=== PATIENT | female | born 1960 | race American Indian/Alaskan Native ===

== ENCOUNTER 2018-02-18 16:52 | Inpatient (IN) | payer MEDICAID ==
[2018-02-18 20:07] LABS: BASO % 0.3 % (0.0-2.0); HEMOGLOBIN 11.4 g/dL (11.0-16.0); LYMPH # 0.8 K/uL (1.0-4.3); MEAN CELL VOLUME 86.3 fL (81.0-99.0); MEAN CORPUSCULAR HEMOGLOBIN 27.7 pg (27.0-31.0); MEAN CORPUSCULAR HGB CONC 32.1 g/dL (33.0-37.0); MEAN PLATELET VOLUME 8.4 fL (7.2-11.7); MONO # 0.3 K/uL (0.0-0.8); MONO % 4.5 % (0.0-10.0); NEUT # 6.2 K/uL (1.8-7.0); NEUT % 84.2 % (50.0-75.0); RBC 4.13 Mil/uL (3.80-5.20); RED CELL DISTRIBUTION WIDTH 15.4 % (11.5-14.5); WHITE BLOOD COUNT 7.4 K/uL (4.8-10.8)
[2018-02-18 20:22] LABS: ALB/GLOB RATIO 1.2 (1.0-2.1); ALBUMIN 4.5 g/dL (3.5-5.0); ALT/SGPT 20 U/L (9-52); AST/SGOT 27 U/L (14-36); BLOOD UREA NITROGEN 23 mg/dL (7-17); CALCIUM 9.2 mg/dl (8.6-10.4); GFR NON-AFRICAN AMERICAN 51
[2018-02-18] MEDS ORDERED: Potassium Chloride 20 mEq/15 ml LIQ UD PO STA (20:45)
[2018-02-18 20:52] LABS: T3 1.05 nmol/L (1.49-2.60)
[2018-02-18] MEDS ORDERED: Potassium Chloride 20 mEq ER Tab PO STA (20:57)
[2018-02-18] MEDS ORDERED: Potassium Chloride 20 mEq ER Tab PO ONE (21:06)
[2018-02-18] MEDS ORDERED: Potassium Chloride 20 mEq/15 ml LIQ UD ONE (21:06)
--- NOTE | 2018-02-18 21:34 | C.PDOC ---
History Of Present Illness 57 y/o female was sent in by insecticide supervisor Dr. Medina for pacemaker placement tomorrow. Patient states she had multiple episodes of syncope over the last several weeks. A loop recorder was placed which shows intermittent complete hear t block. Patient is currently is asymptomatic and has no complaints. Chief Complaint (Nursing): Medical Clearance History Per: Patient History/Exam Limitations: no limitations Onset/Duration Of Symptoms: Days Current Symptoms Are (Timing): Still Present Past Medical History Reviewed: Historical Data, Nursing Documentation, Vital Signs Vital Signs: Last Vital Signs Temp 97.9 F 02/18/18 19:30 Pulse 82 02/18/18 21:29 Resp 20 02/18/18 19:30 BP 95/58 L 02/18/18 21:29 Pulse Ox 97 02/18/18 21:29 Family History: States: No Known Family Hx - Social History Hx Alcohol Use: Yes Hx Substance Use: Yes - Immunization History Hx Tetanus Toxoid Vaccination: No Hx Influenza Vaccination: Yes Hx Pneumococcal Vaccination: Yes Review Of Systems Except As Marked, All Systems Reviewed And Found Negative. Constitutional: Negative for: Fever, Chills Cardiovascular: Negative for: Chest Pain Respiratory: Negative for: Shortness of Breath Gastrointestinal: Negative for: Abdominal Pain Neurological: Positive for: Other (Syncope). Negative for: Dizziness Physical Exam - Physical Exam Appears: Non-toxic, No Acute Distress Skin: Warm, Dry Head: Atraumatic, Normacephalic Eye(s): bilateral: Normal Inspection Oral Mucosa: Moist Neck: Supple Chest: Symmetrical Cardiovascular: Rhythm Regular, No Murmur Respiratory: Normal Breath Sounds, No Rales, No Rhonchi, No Wheezing Gastrointestinal/Abdominal: Soft, No Tenderness Extremity: Bilateral: Atraumatic, Normal Color And Temperature, Normal ROM Neurological/Psych: Oriented x3, Normal Speech ED Course And Treatment - Laboratory Results Result Diagrams: 02/18/18 20:01 02/18/18 20:01 Lab Results: Troponin I < 0.0120 ng/mL (0.00-0.120) 02/18/18 20:01 Total Bilirubin 0.4 mg/dL (0.2-1.3) 02/18/18 20:01 AST 27 U/L (14-36) 02/18/18 20:01 ALT 20 U/L (9-52) 02/18/18 20:01 Alkaline Phosphatase 78 U/L (38-126) 02/18/18 20:01 Total Protein 8.1 g/dL (6.3-8.3) 02/18/18 20:01 Albumin 4.5 g/dL (3.5-5.0) 02/18/18 20:01 Globulin 3.6 gm/dL (2.2-3.9) 02/18/18 20:01 Albumin/Globulin Ratio 1.2 (1.0-2.1) 02/18/18 20:01 ECG: Interpreted By Me, Viewed By Me ECG Rhythm: Sinus Rhythm Interpretation Of ECG: Normal axis. Normal intervals. Rate From EC O2 Sat by Pulse Oximetry: 97 (RA) Pulse Ox Interpretation: Normal Progress - Re-Evaluation Re-evaluation Note: Spoke to Dr. Prasad. Medical Decision Making Medical Decision Making: Plan: --EKG --Labs --Chest XR --Crestor 5 mg PO --K-Dur PO --Lovenox 40 mg SC --Potassium Chloride PO Disposition - Disposition Disposition Time: 20:10 Condition: STABLE - Clinical Impression Clinical Impression: Intermittent complete heart block - Scribe Statement The provider has reviewed the documentation as recorded by the Dannyibemily Rodriguez Provider Attestation: All medical record entries made by the Scribe were at my direction and persona lly dictated by me. I have reviewed the chart and agree that the record accurately reflects my personal performance of the history, physical exam, medical decision making, and the department course for this patient. I have also personally directed, reviewed, and agree with the discharge instructions and disposition.
[2018-02-19 03:49] LABS: CK-MB 0.47 ng/mL (0.0-3.38)
--- NOTE | 2018-02-19 08:21 | RAD ---
Chest x-ray single frontal view HISTORY: Chest pain. Comparison: None available. Findings: Mild venous congestion. Small nodular density at the right lung apex. Heart size within normal limits. Probable external device projects over the left heart border. Clinical correlation. Atherosclerotic calcification plaque within the aorta. Tortuous aorta. Impression: Mild venous congestion. Small nodular density at the right lung apex. Heart size within normal limits. Probable external device projects over the left heart border. Clinical correlation. Atherosclerotic calcification plaque within the aorta. Tortuous aorta.
[2018-02-19] MEDS: Enoxaparin 40 mg Syringe SC SCH (13:34)
--- NOTE | 2018-02-19 15:19 | CP.PCM.CON ---
History of Present Illness - History of Present Illness History of Present Illness: Patient with history of CAD, SLE. multiple episodes of syncope and last episode resulting in left wrist fracture. Loop recorder was placed due to these episodes. Loop recorder interrogation showed multiple episodes of intermittent CHB and 2:1 A-V block. Patient was advised for PPM and she agreed and came to hospital last night. denies any new episodes. Telemetry showing no new blocks or bradycardia. No chest pain or SOB. Past Patient History - Past Medical History & Family History Past Medical History?: Yes - Past Social History Smoking Status: Never Smoked - CARDIAC Hx Cardiac Disorders: Yes Hx Cardia Arrhythmia: Yes Other/Comment: stent - PULMONARY Hx Respiratory Disorders: No - NEUROLOGICAL Hx Neurological Disorder: Yes Hx Syncope: Yes - HEENT Hx HEENT Problems: No - RENAL Hx Chronic Kidney Disease: No - ENDOCRINE/METABOLIC Hx Endocrine Disorders: Yes Hx Systemic Lupus Erythematosus: Yes - HEMATOLOGICAL/ONCOLOGICAL Hx Blood Disorders: No - INTEGUMENTARY Hx Dermatological Problems: No - MUSCULOSKELETAL/RHEUMATOLOGICAL Hx Musculoskeletal Disorders: Yes Hx Falls: Yes Hx Fractures: Yes (left hand) Hx Rheumatoid Arthritis: Yes Other/Comment: broken finger - GASTROINTESTINAL Hx Gastrointestinal Disorders: No - GENITOURINARY/GYNECOLOGICAL Hx Genitourinary Disorders: No - PSYCHIATRIC Hx Psychophysiologic Disorder: No Hx Substance Use: No - SURGICAL HISTORY Hx Surgeries: Yes Other/Comment: stent - ANESTHESIA Hx Anesthesia: Yes Hx Anesthesia Reactions: No Meds Allergies/Adverse Reactions: Allergies Allergy/AdvReac Type Severity Reaction Status Date / Time No Known Allergies Allergy Verified 02/18/18 17:34 - Medications Medications: Current Medications Enoxaparin Sodium (Lovenox) 40 mg SC DAILY [facility] Last Admin: 02/19/18 13:34 Dose: Not Given Pneumococcal Polyvalent Vaccine (Pneumovax 23 Vaccine) 0.5 ml IM .ONCE ONE Stop: 02/21/18 10:01 Rosuvastatin Calcium (Crestor) 5 mg PO HS [facility] Last Admin: 02/18/18 21:25 Dose: 5 mg Physical Exam - Head Exam Head Exam: NORMOCEPHALIC - Neck Exam Neck exam: Positive for: Normal Inspection - Respiratory Exam Respiratory Exam: NORMAL BREATHING PATTERN - Cardiovascular Exam Cardiovascular Exam: REGULAR RHYTHM - Extremities Exam Extremities exam: Positive for: normal inspection - Neurological Exam Neurological exam: Alert, Oriented x3 Results - Vital Signs Recent Vital Signs: Last Vital Signs Temp 98.3 F 02/19/18 10:29 Pulse 76 02/19/18 10:29 Resp 20 02/19/18 10:29 BP 125/82 02/19/18 10:29 Pulse Ox 98 02/19/18 10:29 - Labs Result Diagrams: 02/18/18 20:01 02/19/18 14:07 Labs: Laboratory Results - last 24 hr 02/18/18 02/18/18 02/19/18 20:01 20:01 03:17 WBC 7.4 RBC 4.13 Hgb 11.4 Hct 35.7 MCV 86.3 MCH 27.7 MCHC 32.1 L RDW 15.4 H Plt Count 276 MPV 8.4 Neut % (Auto) 84.2 H Lymph % (Auto) 11.0 L Rankin % (Auto) 4.5 Eos % (Auto) 0.0 Baso % (Auto) 0.3 Neut # (Auto) 6.2 Lymph # (Auto) 0.8 L Rankin # (Auto) 0.3 Eos # (Auto) 0.0 Baso # (Auto) 0.0 PT INR APTT Sodium 135 Potassium 3.1 L Chloride 96 L Carbon Dioxide 27 Anion Gap 14 BUN 23 H Creatinine 1.1 Est GFR ( Amer) > 60 Est GFR (Non-Af Amer) 51 Random Glucose 111 H Calcium 9.2 Total Bilirubin 0.4 AST 27 ALT 20 Alkaline Phosphatase 78 Total Creatine Kinase 39 CK-MB (Mass) 0.47 Troponin I < 0.0120 < 0.0120 Total Protein 8.1 Albumin 4.5 Globulin 3.6 Albumin/Globulin Ratio 1.2 Total T3 1.05 L TSH 3rd Generation 0.62 02/19/18 02/19/18 14:07 14:07 WBC RBC Hgb Hct MCV MCH MCHC RDW Plt Count MPV Neut % (Auto) Lymph % (Auto) Rankin % (Auto) Eos % (Auto) Baso % (Auto) Neut # (Auto) Lymph # (Auto) Rankin # (Auto) Eos # (Auto) Baso # (Auto) PT 11.0 INR 1.0 APTT 30 Sodium Potassium 3.4 L Chloride Carbon Dioxide Anion Gap BUN Creatinine Est GFR ( Amer) Est GFR (Non-Af Amer) Random Glucose Calcium Total Bilirubin AST ALT Alkaline Phosphatase Total Creatine Kinase CK-MB (Mass) Troponin I Total Protein Albumin Globulin Albumin/Globulin Ratio Total T3 TSH 3rd Generation Assessment & Plan (1) CAD (coronary artery disease) Assessment and Plan: Stable, continue current cardiac care. Status: Acute (2) Intermittent complete heart block Assessment and Plan: Syncope most likely secondary to long episodes of CHB. Plans foe PPM. Keep NPO. EP consult. Status: Acute
[2018-02-19] MEDS ORDERED: Thrombin Topical 5,000 Int Units Spray Kit TOP ONE (17:00)
[2018-02-19] MEDS ORDERED: ceFAZolin 1 gm FROZEN Premix 1 GM/50 ML ML IVPB ONE (17:02)
[2018-02-19] MEDS ORDERED: Lidocaine Hydrochloride 10 ML INJ ONE (17:47)
[2018-02-19] MEDS ORDERED: Midazolam 2 MG/2 ML VIAL ONE ×2 (18:07→18:08)
[2018-02-19] MEDS ORDERED: Lidocaine 1% 20 MG/2 ML PF AMP ONE ×2 (18:08→18:10)
--- NOTE | 2018-02-19 19:24 | PCM.OP ---
Operative Report - Operative Report Date of Surgery/Procedure: 02/19/18 Time of Surgery/Procedure: 19:19 Surgeon: malena Anesthesia/Sedation: MAC Pre-Operative Diagnosis: syncope, complete heart block Post-Operative Diagnosis: syncope, complete heart block Indication for Surgery: syncope, complete heart block Operative Findings: syncope, complete heart block Procedure/Operation Description: She was brought to the OR after an informed consent and in a post absorptive state She was administred prophylactic antibiotics The left pectoral region was prepped and cleansed in the usual fashion Under local anesthesia a 3 cm incision was made over the left upper pectoral region the left subclavian vein was cannulated twice and via two six austrian sheaths a 45 cm and a 52 cm leads were placed in the right atrium and the right ventricle and secured Next the leads were secured to the pectoral muscle; the sense and pace parameters were normal The pacemaker generator was introduced connected to the leads and the wound closed in layers Estimated Blood Loss: 5 cc Complications: None Discharge & Condition: antibiotics x 3 doses chest xray
[2018-02-19] MEDS ORDERED: Oxycodone/Acetaminophen 5/325 mg Tab PO PRN (19:29)
--- NOTE | 2018-02-19 20:54 | CP.PCM.HP ---
Past Patient History - Past Medical History & Family History Past Medical History?: Yes - Past Social History Smoking Status: Never Smoked - CARDIAC Hx Cardiac Disorders: Yes Hx Cardia Arrhythmia: Yes Other/Comment: stent - PULMONARY Hx Respiratory Disorders: No - NEUROLOGICAL Hx Neurological Disorder: Yes Hx Syncope: Yes - HEENT Hx HEENT Problems: No - RENAL Hx Chronic Kidney Disease: No - ENDOCRINE/METABOLIC Hx Endocrine Disorders: Yes Hx Systemic Lupus Erythematosus: Yes - HEMATOLOGICAL/ONCOLOGICAL Hx Blood Disorders: No - INTEGUMENTARY Hx Dermatological Problems: No - MUSCULOSKELETAL/RHEUMATOLOGICAL Hx Musculoskeletal Disorders: Yes Hx Falls: Yes Hx Fractures: Yes (left hand) Hx Rheumatoid Arthritis: Yes Other/Comment: broken finger - GASTROINTESTINAL Hx Gastrointestinal Disorders: No - GENITOURINARY/GYNECOLOGICAL Hx Genitourinary Disorders: No - PSYCHIATRIC Hx Psychophysiologic Disorder: No Hx Substance Use: No - SURGICAL HISTORY Hx Surgeries: Yes Other/Comment: stent - ANESTHESIA Hx Anesthesia: Yes Hx Anesthesia Reactions: No Meds Allergies/Adverse Reactions: Allergies Allergy/AdvReac Type Severity Reaction Status Date / Time No Known Allergies Allergy Verified 02/18/18 17:34 Results - Vital Signs Recent Vital Signs: Last Vital Signs Temp 98.4 F 02/19/18 15:29 Pulse 92 H 02/19/18 15:29 Resp 18 02/19/18 15:29 BP 114/78 02/19/18 15:29 Pulse Ox 96 02/19/18 15:29 - Labs Result Diagrams: 02/18/18 20:01 02/19/18 14:07 Labs: Laboratory Results - last 24 hr 02/19/18 02/19/18 02/19/18 03:17 14:07 14:07 PT 11.0 INR 1.0 APTT 30 Potassium 3.4 L Total Creatine Kinase 39 CK-MB (Mass) 0.47 Troponin I < 0.0120
[2018-02-20] MEDS: ceFAZolin 1 GM in Sodium Chloride 0.9% 100 ML IVPB SCH ×3 (02:00→16:14)
[2018-02-20] MEDS: Oxycodone/Acetaminophen 5/325 mg Tab PO PRN ×4 (02:50→21:34)
--- NOTE | 2018-02-20 04:10 | HP ---
CHIEF COMPLAINT: Abnormal loop recorder. HISTORY OF PRESENT ILLNESS: This is a 57-year-old female with history of hypertension, coronary artery disease, systemic lupus erythematosus, and she in the past had multiple episodes of syncope and her last syncope ended up with a fall with left wrist fracture, and a loop recorder was placed due to these episodes and this loop recorder showed 2 to 1 heart block and intermittent complete heart block in between, and the patient was advised a permanent pacemaker replacement. She came to emergency room, and she was hospitalized. However, the patient was monitored initially on telemetry, that did not show any arrhythmia since yesterday. The patient denies any chest pain, nausea, vomiting. She gets occasional dizziness. No cough. No sore throat. According to the patient, she does not do any heavy physical activity. She denies any abdominal pain, nausea, vomiting, or diarrhea. She denies any chest pain or palpitations. She denies any history of fever, chills. She denies any tongue bite, incontinence of urine. She denies any polyuria, polydipsia, or polyphagia. She denies any hematuria or pyuria. PAST MEDICAL HISTORY: Hypertension, coronary artery disease, systemic lupus erythematosus. SOCIAL HISTORY: Nonsmoker, non-ETOH user. MEDICATIONS: Current medications at home, she is on Hydrodiuril, Zoloft, multivitamin, Plaquenil, aspirin, Flonase, Lexapro, Protonix, vitamin D, Lipitor. PHYSICAL EXAMINATION: GENERAL: A middle-aged female, in no distress. VITAL SIGNS: Blood pressure 114/78, pulse 92, respiratory rate 18, and temperature 98.4. SKIN: Warm. Good turgor. No bruises. HEENT: Atraumatic and normocephalic. Negative pallor. Negative jaundice. Extraocular movements are intact. NECK: Supple. No JVD. No lymph nodes. CHEST WALL: Bilateral symmetrical expansion. LUNGS: Clear. CARDIOVASCULAR SYSTEM: PMI not localized. S1 and S2. Regular. No heave. No thrill. ABDOMEN: Soft, nontender. Bowel sounds are positive. RECTAL AND PELVIC: Deferred. EXTREMITIES: No clubbing, cyanosis, or edema. CENTRAL NERVOUS SYSTEM: Awake, alert, oriented x3. Cranial nerves II through XII are normal. Power 5/5 x4. Plantars are downgoing. ASSESSMENT: 1. Complete heart block intermittent with 2 to 1 atrioventricular block. 2. Hypertension. 3. Lupus. PLAN: Admit. Detailed orders are written, and the patient is here for permanent pacemaker replacement. Pal Prasad MD
[2018-02-20 06:31] LABS: BASO % 0.4 % (0.0-2.0); EOS % 0.1 % (0.0-4.0); HEMOGLOBIN 11.1 g/dL (11.0-16.0); LYMPH # 1.7 K/uL (1.0-4.3); LYMPH % 24.1 % (20.0-40.0); MEAN CELL VOLUME 86.5 fL (81.0-99.0); MEAN CORPUSCULAR HEMOGLOBIN 28.2 pg (27.0-31.0); MEAN CORPUSCULAR HGB CONC 32.7 g/dL (33.0-37.0); MEAN PLATELET VOLUME 8.6 fL (7.2-11.7); MONO # 0.7 K/uL (0.0-0.8); MONO % 9.7 % (0.0-10.0); NEUT # 4.6 K/uL (1.8-7.0); NEUT % 65.7 % (50.0-75.0); NRBC % 0.1 % (0.0-2.0); RBC 3.95 Mil/uL (3.80-5.20)
[2018-02-20 06:57] LABS: ALB/GLOB RATIO 1.2 (1.0-2.1); ALBUMIN 3.9 g/dL (3.5-5.0); ALT/SGPT 13 U/L (9-52); AST/SGOT 22 U/L (14-36); BLOOD UREA NITROGEN 22 mg/dL (7-17); CALCIUM 8.5 mg/dl (8.6-10.4); GFR NON-AFRICAN AMERICAN 57
[2018-02-20] MEDS: Potassium Chloride 20 mEq ER Tab PO SCH (08:49)
[2018-02-20] MEDS: Fluticasone Nasal 50 mcg/Spray NAS SCH (09:16)
[2018-02-20] MEDS: Multiple Vitamins Tab PO SCH (09:17)
[2018-02-20] MEDS: Enoxaparin 40 mg Syringe SC SCH (09:17)
[2018-02-20] MEDS ORDERED: Home Med 1 UNIT (Atorvastatin [Lipitor] 1 TAB) PO SCH (10:00)
--- NOTE | 2018-02-20 11:36 | RAD ---
Date of service: 02/19/2018 HISTORY: POST PPM INSERTION COMPARISON: 02/18/2018. FINDINGS: LUNGS: The lungs are well inflated and clear. PLEURA: No pleural effusions or pneumothorax. CARDIOVASCULAR: The heart is normal in size. There is interval placement of left-sided dual lead transvenous permanent pacing device. There is stable appearance of a battery devise overlying the left lower lobe. Atherosclerotic aortic arch calcifications are present. OSSEOUS STRUCTURES: Within normal limits for the patient's age. VISUALIZED UPPER ABDOMEN: Normal. OTHER FINDINGS: None. IMPRESSION: Interval placement of left-sided dual lead permanent pacing device. No acute findings.
--- NOTE | 2018-02-20 12:18 | CP.PCM.PN ---
Subjective - Date & Time of Evaluation Date of Evaluation: 02/20/18 Time of Evaluation: 12:15 - Subjective Subjective: Laying in bed. No chest pain except at the site of PPM. No SOB. Objective - Vital Signs/Intake and Output Vital Signs (last 24 hours): Temp Pulse Resp BP Pulse Ox 98.4 F 79 12 126/89 100 02/20/18 08:00 02/20/18 11:03 02/20/18 11:03 02/20/18 11:03 02/20/18 10:00 Intake and Output: 02/20/18 02/20/18 06:59 18:59 Intake Total 1060 0 Output Total 300 0 Balance 760 0 - Medications Medications: Current Medications Aspirin (Ecotrin) 81 mg PO DAILY [facility] Last Admin: 02/20/18 10:23 Dose: 81 mg Enoxaparin Sodium (Lovenox) 40 mg SC DAILY [facility] Last Admin: 02/20/18 09:17 Dose: 40 mg Escitalopram Oxalate (Lexapro) 10 mg PO DAILY [facility] Last Admin: 02/20/18 09:17 Dose: 10 mg Fluticasone Propionate (Flonase) 1 spr SHANNON DAILY [facility] Last Admin: 02/20/18 09:16 Dose: 1 spr Hydrochlorothiazide (Hydrodiuril) 25 mg PO DAILY [facility] Last Admin: 02/20/18 10:24 Dose: 25 mg Hydroxychloroquine Sulfate (Plaquenil) 200 mg PO DAILY [facility]; Protocol Last Admin: 02/20/18 10:24 Dose: 200 mg Bacitracin 50,000 unit/ Sodium (Chloride) 1,000 mls @ 0 mls/hr IR .Q0M [facility] Cefazolin Sodium 1 gm/ Sodium (Chloride) 100 mls @ 100 mls/hr IVPB Q8H [facility]; Protocol Last Admin: 02/20/18 08:44 Dose: 100 mls/hr Multivitamins (Hexavitamin) 1 tab PO DAILY [facility] Last Admin: 02/20/18 09:17 Dose: 1 tab Oxycodone/Acetaminophen (Percocet 5/325 Mg Tab) 2 tab PO Q4H PRN PRN Reason: Pain, moderate (4-7) Stop: 02/23/18 02:42 Last Admin: 02/20/18 08:50 Dose: 2 tab Pneumococcal Polyvalent Vaccine (Pneumovax 23 Vaccine) 0.5 ml IM .ONCE ONE Stop: 02/21/18 10:01 Potassium Chloride (K-Dur 20 Meq Er Tab) 40 meq PO DAILY [facility] Last Admin: 02/20/18 08:49 Dose: 40 meq Rosuvastatin Calcium (Crestor) 5 mg PO HS [facility] Last Admin: 02/19/18 21:00 Dose: 5 mg Sertraline HCl (Zoloft) 25 mg PO DAILY [facility] Last Admin: 02/20/18 11:15 Dose: 25 mg - Labs Labs: 02/20/18 06:21 02/20/18 06:21 PT 11.0 SECONDS (9.7-12.2) 02/19/18 14:07 INR 1.0 02/19/18 14:07 APTT 30 SECONDS (21-34) 02/19/18 14:07 - Head Exam Head Exam: NORMOCEPHALIC - Neck Exam Neck Exam: Normal Inspection - Respiratory Exam Respiratory Exam: NORMAL BREATHING PATTERN - Cardiovascular Exam Cardiovascular Exam: REGULAR RHYTHM - Extremities Exam Extremities Exam: Normal Inspection - Neurological Exam Neurological Exam: Alert, Oriented x3 Assessment and Plan (1) CAD (coronary artery disease) Assessment & Plan: Stable. Continue DAPT. Correct electrolytes. Status: Acute (2) Intermittent complete heart block Assessment & Plan: Had PPM done. Telemetry Sinus rhythm. Status: Acute
--- NOTE | 2018-02-20 14:44 | CP.PCM.CON ---
<Jl Aguillon - Last Filed: 02/20/18 14:32> History of Present Illness - History of Present Illness History of Present Illness: Critical Care Progress Note for Dr. Ahn's service CC: syncope HPI: Patient is a 57 yo female w/ PMH of CAD, SLE. multiple episodes of syncope and last episode resulting in left wrist fracture. Patient had loop recorder that showed complete heart block. Patient was admitted to hospital for pacemaker placement. s/p pacemaker placement yesterday. Patient was downgraded to tele floor. Patient offered 0 complaints. Patient denies fevers, chill, chest pain, sob, n/v, constipation or diarrhea, weakness, and dysuria. PE HEENT: NC; AT CV: normal s1, s2; no murmurs/rubs/gallop Pulm: CTA b/l; no w/r/r GI: +BS; Soft; Non-tender Extremities: normal inspection, no cyanosis, no edema, no calf tenderness Skin: Normal inspection; warm; dry A/P Syncope- seen on loop recorder; s/p pacemaker placement for complete heart block SLE- Hydroxychloroquinine CAD- Aspirin, Crestor HTN- HCTZ Depression/Anxiety - Lexapro, Zoloft Electrolyte disturbances- KCl PRN: oxycodone DVT ppx: Lovenox PGY-1 Jl Aguillon Medical Management d/w Dr. Ahn Past Patient History - Past Medical History & Family History Past Medical History?: Yes - Past Social History Smoking Status: Never Smoked - CARDIAC Hx Cardiac Disorders: Yes Hx Cardia Arrhythmia: Yes Other/Comment: stent - PULMONARY Hx Respiratory Disorders: No - NEUROLOGICAL Hx Neurological Disorder: Yes Hx Syncope: Yes - HEENT Hx HEENT Problems: No - RENAL Hx Chronic Kidney Disease: No - ENDOCRINE/METABOLIC Hx Endocrine Disorders: Yes Hx Systemic Lupus Erythematosus: Yes - HEMATOLOGICAL/ONCOLOGICAL Hx Blood Disorders: No - INTEGUMENTARY Hx Dermatological Problems: No - MUSCULOSKELETAL/RHEUMATOLOGICAL Hx Musculoskeletal Disorders: Yes Hx Falls: Yes Hx Fractures: Yes (left hand) Hx Rheumatoid Arthritis: Yes Other/Comment: broken finger - GASTROINTESTINAL Hx Gastrointestinal Disorders: No - GENITOURINARY/GYNECOLOGICAL Hx Genitourinary Disorders: No - PSYCHIATRIC Hx Psychophysiologic Disorder: No Hx Substance Use: No - SURGICAL HISTORY Hx Surgeries: Yes Other/Comment: stent - ANESTHESIA Hx Anesthesia: Yes Hx Anesthesia Reactions: No Meds Allergies/Adverse Reactions: Allergies Allergy/AdvReac Type Severity Reaction Status Date / Time No Known Allergies Allergy Verified 02/18/18 17:34 - Medications Medications: Current Medications Aspirin (Ecotrin) 81 mg PO DAILY [facility] Last Admin: 02/20/18 10:23 Dose: 81 mg Enoxaparin Sodium (Lovenox) 40 mg SC DAILY [facility] Last Admin: 02/20/18 09:17 Dose: 40 mg Escitalopram Oxalate (Lexapro) 10 mg PO DAILY [facility] Last Admin: 02/20/18 09:17 Dose: 10 mg Fluticasone Propionate (Flonase) 1 spr SHANNON DAILY [facility] Last Admin: 02/20/18 09:16 Dose: 1 spr Hydrochlorothiazide (Hydrodiuril) 25 mg PO DAILY [facility] Last Admin: 02/20/18 10:24 Dose: 25 mg Hydroxychloroquine Sulfate (Plaquenil) 200 mg PO DAILY [facility]; Protocol Last Admin: 02/20/18 10:24 Dose: 200 mg Bacitracin 50,000 unit/ Sodium (Chloride) 1,000 mls @ 0 mls/hr IR .Q0M [facility] Cefazolin Sodium 1 gm/ Sodium (Chloride) 100 mls @ 100 mls/hr IVPB Q8H [facility]; Protocol Last Admin: 02/20/18 08:44 Dose: 100 mls/hr Multivitamins (Hexavitamin) 1 tab PO DAILY [facility] Last Admin: 02/20/18 09:17 Dose: 1 tab Oxycodone/Acetaminophen (Percocet 5/325 Mg Tab) 2 tab PO Q4H PRN PRN Reason: Pain, moderate (4-7) Stop: 02/23/18 02:42 Last Admin: 02/20/18 08:50 Dose: 2 tab Pneumococcal Polyvalent Vaccine (Pneumovax 23 Vaccine) 0.5 ml IM .ONCE ONE Stop: 02/21/18 10:01 Potassium Chloride (K-Dur 20 Meq Er Tab) 40 meq PO DAILY [facility] Last Admin: 02/20/18 08:49 Dose: 40 meq Rosuvastatin Calcium (Crestor) 5 mg PO HS [facility] Last Admin: 02/19/18 21:00 Dose: 5 mg Sertraline HCl (Zoloft) 25 mg PO DAILY [facility] Last Admin: 02/20/18 11:15 Dose: 25 mg Results - Vital Signs Recent Vital Signs: Last Vital Signs Temp 97.8 F 02/20/18 12:00 Pulse 82 02/20/18 13:00 Resp 16 02/20/18 13:00 BP 134/88 02/20/18 12:39 Pulse Ox 100 02/20/18 10:00 - Labs Result Diagrams: 02/20/18 06:21 02/20/18 06:21 Labs: Laboratory Results - last 24 hr 02/20/18 02/20/18 06:21 06:21 WBC 7.0 RBC 3.95 Hgb 11.1 Hct 34.1 MCV 86.5 MCH 28.2 MCHC 32.7 L RDW 15.0 H Plt Count 247 MPV 8.6 Neut % (Auto) 65.7 Lymph % (Auto) 24.1 [place] % (Auto) 9.7 Eos % (Auto) 0.1 Baso % (Auto) 0.4 Neut # (Auto) 4.6 Lymph # (Auto) 1.7 [place] # (Auto) 0.7 Eos # (Auto) 0.0 Baso # (Auto) 0.0 Sodium 134 Potassium 3.3 L Chloride 99 Carbon Dioxide 27 Anion Gap 11 BUN 22 H Creatinine 1.0 Est GFR ( Amer) > 60 Est GFR (Non-Af Amer) 57 Random Glucose 87 D Calcium 8.5 L Phosphorus 4.0 Magnesium 1.8 Total Bilirubin 0.3 AST 22 ALT 13 Alkaline Phosphatase 76 Total Protein 7.2 Albumin 3.9 Globulin 3.3 Albumin/Globulin Ratio 1.2 <Myah Ahn - Last Filed: 02/20/18 17:32> Meds - Medications Medications: Current Medications Aspirin (Ecotrin) 81 mg PO DAILY [facility] Last Admin: 02/20/18 10:23 Dose: 81 mg Enoxaparin Sodium (Lovenox) 40 mg SC DAILY [facility] Last Admin: 02/20/18 09:17 Dose: 40 mg Escitalopram Oxalate (Lexapro) 10 mg PO DAILY [facility] Last Admin: 02/20/18 09:17 Dose: 10 mg Fluticasone Propionate (Flonase) 1 spr SHANNON DAILY [facility] Last Admin: 02/20/18 09:16 Dose: 1 spr Hydrochlorothiazide (Hydrodiuril) 25 mg PO DAILY [facility] Last Admin: 02/20/18 10:24 Dose: 25 mg Hydroxychloroquine Sulfate (Plaquenil) 200 mg PO DAILY [facility]; Protocol Last Admin: 02/20/18 10:24 Dose: 200 mg Cefazolin Sodium 1 gm/ Sodium (Chloride) 100 mls @ 100 mls/hr IVPB Q8H [facility]; Protocol Last Admin: 02/20/18 16:14 Dose: 100 mls/hr Multivitamins (Hexavitamin) 1 tab PO DAILY [facility] Last Admin: 02/20/18 09:17 Dose: 1 tab Oxycodone/Acetaminophen (Percocet 5/325 Mg Tab) 2 tab PO Q4H PRN PRN Reason: Pain, moderate (4-7) Stop: 02/23/18 02:42 Last Admin: 02/20/18 15:05 Dose: 2 tab Pneumococcal Polyvalent Vaccine (Pneumovax 23 Vaccine) 0.5 ml IM .ONCE ONE Stop: 02/21/18 10:01 Potassium Chloride (K-Dur 20 Meq Er Tab) 40 meq PO DAILY [facility] Last Admin: 02/20/18 08:49 Dose: 40 meq Rosuvastatin Calcium (Crestor) 5 mg PO HS [facility] Last Admin: 02/19/18 21:00 Dose: 5 mg Sertraline HCl (Zoloft) 25 mg PO DAILY [facility] Last Admin: 02/20/18 11:15 Dose: 25 mg Results - Vital Signs Recent Vital Signs: Last Vital Signs Temp 98.5 F 02/20/18 16:00 Pulse 91 H 02/20/18 16:00 Resp 16 02/20/18 16:00 BP 134/88 02/20/18 12:39 Pulse Ox 100 02/20/18 10:00 - Labs Result Diagrams: 02/20/18 06:21 02/20/18 06:21 Labs: Laboratory Results - last 24 hr 02/20/18 02/20/18 06:21 06:21 WBC 7.0 RBC 3.95 Hgb 11.1 Hct 34.1 MCV 86.5 MCH 28.2 MCHC 32.7 L RDW 15.0 H Plt Count 247 MPV 8.6 Neut % (Auto) 65.7 Lymph % (Auto) 24.1 [place] % (Auto) 9.7 Eos % (Auto) 0.1 Baso % (Auto) 0.4 Neut # (Auto) 4.6 Lymph # (Auto) 1.7 [place] # (Auto) 0.7 Eos # (Auto) 0.0 Baso # (Auto) 0.0 Sodium 134 Potassium 3.3 L Chloride 99 Carbon Dioxide 27 Anion Gap 11 BUN 22 H Creatinine 1.0 Est GFR ( Amer) > 60 Est GFR (Non-Af Amer) 57 Random Glucose 87 D Calcium 8.5 L Phosphorus 4.0 Magnesium 1.8 Total Bilirubin 0.3 AST 22 ALT 13 Alkaline Phosphatase 76 Total Protein 7.2 Albumin 3.9 Globulin 3.3 Albumin/Globulin Ratio 1.2 Assessment & Plan - Assessment and Plan (Free Text) Assessment: Above resident note reviewed. Patient seen and examined at bedside. Patient awake alert, denies any syncopal episode. -PAtient remains hemodynamically stable -restart home medication -PT/OT - Date & Time Date: 02/20/18 Time: 17:32
--- NOTE | 2018-02-20 17:34 | CARD ---
APPROVED REPORT Date of service: 02/19/2018 EKG Measurement Heart [id number] <Conclusion> Normal sinus rhythm Normal ECG
--- NOTE | 2018-02-21 00:48 | PN ---
DATE: 02/20/2018 SUBJECTIVE: The patient is status post permanent pacemaker placement. Postoperatively, she is doing well. She has some mild postop pain. No nausea. No vomiting. No shortness of breath. No cough. PHYSICAL EXAMINATION VITAL SIGNS: Blood pressure 130/80, pulse 62, respiratory rate 15, temperature . LUNGS: Clear. CARDIOVASCULAR SYSTEM: S1 and S2 regular. ABDOMEN: Soft. ASSESSMENT: Complete intermittent heart block with 2:1 second-degree atrioventricular block. PLAN: Supportive care. . Pal Prasad MD
[2018-02-21] MEDS: ceFAZolin 1 GM in Sodium Chloride 0.9% 100 ML IVPB SCH (01:16)
[2018-02-21] MEDS: Oxycodone/Acetaminophen 5/325 mg Tab PO PRN ×2 (08:24→14:05)
[2018-02-21] MEDS: Enoxaparin 40 mg Syringe SC SCH (09:53)
[2018-02-21] MEDS: Potassium Chloride 20 mEq ER Tab PO SCH (09:53)
[2018-02-21] MEDS: Multiple Vitamins Tab PO SCH (09:53)
[2018-02-21] MEDS ORDERED: Pneumococcal 23-Valent Vaccine IM ONE (10:00)
[2018-02-21] MEDS: Fluticasone Nasal 50 mcg/Spray NAS SCH (10:08)
[2018-02-21 14:20] VITALS: TEMP 98.4
[2018-02-21 17:04] VITALS: O2SAT 99
[2018-02-21 17:13] VITALS: BP 137/82; PULSE 68; RESP 8
--- NOTE | 2018-02-21 17:23 | CARD ---
APPROVED REPORT Date of service: 02/18/2018 EKG Measurement Heart [id number] <Conclusion> Normal sinus rhythm Normal ECG
--- NOTE | 2018-02-23 06:12 | DS ---
DISCHARGE DIAGNOSES: Heart block, hypertension, hyperlipidemia. HISTORY OF PRESENT ILLNESS: This is a middle-aged 55-year-old -[place] female well known to me with history of hypertension, came in because of recurrent falls, syncopal episodes with left wrist fracture and found to have intermittent complete heart block and 2:1 second-degree AV block, and the patient was admitted to the floor. She underwent a permanent pacemaker placement and she is for discharge. CONDITION UPON DISCHARGE: Stable. PHYSICAL EXAMINATION: VITAL SIGNS: Blood pressure is 116/90, pulse 66, respiratory rate 16, temperature 99. LUNGS: Clear. CARDIOVASCULAR SYSTEM: S1 and S2 regular. ABDOMEN: Soft. PLAN: Discharge the patient. Pal Prasad MD
== END 2018-02-21 17:00 | disposition home or self-care (01) | DRG 116 ==
LOC: C.ER 16:52 → C.9E 20:32 → C.5S 02-19 09:16 → C.9I 02-19 19:47
PROVIDERS: ADMIT Internal Medicine; ATTEND Internal Medicine
PROC: 0JH606Z Insertion of Pacemaker, Dual Chamber into Chest Subcutaneous Tissue and Fascia, Open Approach (ICD-10-PCS; principal; 2018-02-19)
PROC: 02H63JZ Insertion of Pacemaker Lead into Right Atrium, Percutaneous Approach (ICD-10-PCS; 2018-02-19)
PROC: 02HK3JZ Insertion of Pacemaker Lead into Right Ventricle, Percutaneous Approach (ICD-10-PCS; 2018-02-19)
DX: I44.2 Atrioventricular block, complete (principal); M32.9 Systemic lupus erythematosus, unspecified; I25.10 Atherosclerotic heart disease of native coronary artery without angina pectoris; R55 Syncope and collapse; I10 Essential (primary) hypertension; E78.5 Hyperlipidemia, unspecified; F32.9 Major depressive disorder, single episode, unspecified; F41.9 Anxiety disorder, unspecified